=== PATIENT | female | born 1955 | race Caucasian/White ===

== ENCOUNTER 2019-06-02 18:20 | Observation (INO) | payer MEDICARE, BC ==
[2019-06-02] MEDS ORDERED: NORMAL SALINE 1000 ML 1,000 ML IV ONE ×2 (18:57→21:37)
--- NOTE | 2019-06-02 18:59 | ER Document Report ---
ED Medical Screen (RME) - General Chief Complaint: Dizziness Stated Complaint: LOW BLOOD PRESSURE Time Seen by Provider: 06/02/19 18:57 Primary Care Provider: KAYLIN BRUCE [Primary Care Provider] - Follow up as needed Mode of Arrival: Wheelchair Information source: Patient Notes: 63-year-old female presented to ED for weakness all days. She states she slipped on night and then all day. She states her pulse is been 120 and her blood pressure was 88/58 at the urgent care and 92/60 here. She states she is been dizzy all day. She states she has a history of high blood pressure and they took her off her medicines a month ago and is been low since then. States she has a history of cholesterol gastroparesis and migraines. She states she has had multiple EGDs and colonoscopies hiatal hernia Nica fundoplication. She states the Nexium caused the gastroparesis. She states she is also had a hysterectomy and appendectomy. Patient is alert and answering questions appropriately I have greeted and performed a rapid initial assessment of this patient. A comprehensive ED assessment and evaluation of the patient, analysis of test results and completion of medical decision making process will be conducted by an additional ED providers. Dictation of this chart was performed using voice recognition software; therefore, there may be some unintended grammatical errors. TRAVEL OUTSIDE OF THE [place] IN LAST 30 DAYS: No Past Medical History - Past Medical History Cardiac Medical History: Reports: Hx Hypercholesterolemia, Hx Hypertension Renal/ Medical History: Denies: Hx Peritoneal Dialysis Past Surgical History: Reports: Hx Abdominal Surgery - hernia repair Physical Exam - Vital signs Vitals: Temp Pulse Resp BP Pulse Ox 97.9 F 120 H 16 92/60 L 97 06/02/19 18:42 06/02/19 18:42 06/02/19 18:42 06/02/19 18:42 06/02/19 18:42 Course - Vital Signs Vital signs: Temp Pulse Resp BP Pulse Ox 97.9 F 120 H 16 92/60 L 97 06/02/19 18:42 06/02/19 18:42 06/02/19 18:42 06/02/19 18:42 06/02/19 18:42 Doctor's Discharge - Discharge Referrals: KAYLIN BRUCE [Primary Care Provider] - Follow up as needed
[2019-06-02 19:22] LABS: ABSOLUTE LYMPHOCYTES (AUTO) 0.5 10^3/uL (0.5-4.7); ABSOLUTE MONOCYTES (AUTO) 0.7 10^3/uL (0.1-1.4); ABSOLUTE NEUT (AUTO) 7.8 10^3/uL (1.7-8.2); BASOPHILS % (AUTO) 0.3 % (0-2); EOSINOPHILS % (AUTO) 0.1 % (0-6); HEMATOCRIT 37.3 % (36.0-47.0); HEMOGLOBIN 12.5 g/dL (12.0-15.5); LYMPHOCYTES % (AUTO) 5.2 % (13-45); MEAN CORPUSCULAR HEMOGLOBIN 31.2 pg (27.0-33.4); MEAN CORPUSCULAR HGB CONC 33.5 g/dL (32.0-36.0); MEAN CORPUSCULAR VOLUME 93 fl (80-97); MONOCYTES % (AUTO) 7.4 % (3-13); PLATELET COUNT 200 10^3/uL (150-450); RED BLOOD COUNT 4.01 10^6/uL (3.72-5.28); TOTAL CELLS COUNTED % (AUTO) 100 %
--- NOTE | 2019-06-02 19:24 | RADIOLOGY REPORT (SQ) ---
EXAM DESCRIPTION: CHEST 2 VIEWS COMPLETED DATE/TIME: 06/02/2019 7:12 pm REASON FOR STUDY: dizziness COMPARISON: None. EXAM PARAMETERS: NUMBER OF VIEWS: two views TECHNIQUE: Digital Frontal and Lateral radiographic views of the chest acquired. RADIATION DOSE: NA LIMITATIONS: none FINDINGS: LUNGS AND PLEURA: No opacities, masses or pneumothorax. No pleural effusion. MEDIASTINUM AND HILAR STRUCTURES: No masses or contour abnormalities. HEART AND VASCULAR STRUCTURES: Heart normal size. No evidence for failure. BONES: No acute findings. HARDWARE: None in the chest. OTHER: No other significant finding. IMPRESSION: NO ACUTE RADIOGRAPHIC FINDING IN THE CHEST. TECHNICAL DOCUMENTATION: JOB ID: [id number] [employer]- All Rights Reserved Reading location - IP/workstation name: [email or web address]
[2019-06-02 19:39] LABS: ALANINE AMINOTRANSFERASE 25 U/L (9-52); ALBUMIN 4.1 g/dL (3.5-5.0); ALKALINE PHOSPHATASE 83 U/L (38-126); ANION GAP 14 (5-19); ASPARTATE AMINO TRANSFERASE 31 U/L (14-36); BILIRUBIN,DIRECT 0.4 mg/dL (0.0-0.4); BILIRUBIN,TOTAL 0.4 mg/dL (0.2-1.3); BLOOD UREA NITROGEN 28 mg/dL (7-20); CALCIUM 8.6 mg/dL (8.4-10.2); CARBON DIOXIDE 21 mmol/L (22-30); CHLORIDE 97 mmol/L (98-107); GLUCOSE 87 mg/dL (75-110); POTASSIUM 4.3 mmol/L (3.6-5.0); TOTAL PROTEIN 7.1 g/dL (6.3-8.2)
--- NOTE | 2019-06-02 19:51 | ER Document Report ---
ED General - General Chief Complaint: Dizziness Stated Complaint: LOW BLOOD PRESSURE Time Seen by Provider: 06/02/19 18:57 Primary Care Provider: KAYLIN BRUCE [ACTIVE STAFF] - Follow up as needed Mode of Arrival: Wheelchair Information source: Patient Notes: HPI: Patient is a 63-year-old female that presents today with the onset of the last 24 to 48 hours of just feeling increased tiredness. She also says she has some feelings of intermittent vertigo. Patient denies any headache, blurry vision, neck pain, falls, chest pain, shortness of breath, abdominal pain, dysuria, or weakness or numbness. Patient states she has had "multiple episodes" of this in the past with MRI imaging that was unremarkable. is at bedside and agrees. Patient was recently discharged off her Floricef and potassium supplements per the primary care physician 1 month ago. She states however she had multiple similar symptoms before and after this was discontinued. ROS: See HPI All other review of systems reviewed and otherwise negative Reviewed vital signs and nursing note as charted by RN. PHYSICAL EXAM: CONSTITUTIONAL: Alert and oriented and responds appropriately to questions. Well-appearing; well-nourished HEAD: Normocephalic; atraumatic EYES: PERRL; no nystagmus noted ENT: Normal nose; no rhinorrhea; moist mucous membranes; pharynx without lesions noted NECK: Supple without meningismus; non-tender; no carotid bruits; no cervical lymphadenopathy, no masses CARD: Regular rate and rhythm; no murmurs; symmetric distal pulses RESP: Normal chest excursion without splinting or tachypnea; breath sounds clear and equal bilaterally; no wheezes, no rhonchi, no rales ABD/GI: Normal bowel sounds; non-distended; soft, non-tender; no abdominal bruits; no palpable organomegaly or masses BACK: The back appears normal and is non-tender to palpation EXT: Normal ROM in all joints; non-tender to palpation; no edema SKIN: No acute lesions noted NEURO: CN 2-12 intact; 5/5 bilateral upper and lower extremity strength with sensation intact to light touch; no nystagmus noted PSYCH: The patient's mood and manner are appropriate. Grooming and personal hygiene are appropriate. TRAVEL OUTSIDE OF THE [place] IN LAST 30 DAYS: No - Related Data Allergies/Adverse Reactions: ciprofloxacin [From Cipro] Allergy (Verified 06/02/19 20:53) quinine Allergy (Verified 06/02/19 20:53) Sulfa (Sulfonamide Antibiotics) Allergy (Verified 06/02/19 20:53) sumatriptan [From Imitrex] Allergy (Verified 06/02/19 20:53) Past Medical History - General Information source: Patient - Social History Smoking Status: Never Smoker Family History: Reviewed & Not Pertinent Patient has suicidal ideation: No Patient has homicidal ideation: No - Past Medical History Cardiac Medical History: Reports: Hx Hypercholesterolemia, Hx Hypertension Renal/ Medical History: Denies: Hx Peritoneal Dialysis Past Surgical History: Reports: Hx Abdominal Surgery - hernia repair Physical Exam - Vital signs Vitals: Temp Pulse Resp BP Pulse Ox 97.9 F 120 H 16 92/60 L 97 06/02/19 18:42 06/02/19 18:42 06/02/19 18:42 06/02/19 18:42 06/02/19 18:42 Course - Re-evaluation Re-evalutation: Given the history and physical examination in the 63-year-old female we will obtain basic labs, EKG, troponin, urine analysis, provide fluids, and reassess. Patient has no pain. She has no focal neurological deficits. She has no carotid bruits, or abdominal swelling with no tenderness to the abdomen or abdominal bruits present. Patient states she has multiple episodes of this in the past. Recent medication changes around 1 month ago. However, the patient had symptomatology similar to this before and after those events. She states that the primary care physician has not yet found a reason for these episodes. Patient denies any tinnitus or recent upper respiratory tract infections and de nies any fullness to the ears. 06/02/19 19:51 Initial labs as recorded. Heart rate is 87. Still no focal neurological deficits. No old labs to compare. A liter of fluid has been ordered. Slightly elevated BUN. EKG shows a heart of 103, sinus tachycardia, normal axis, no obvious ST elevation or depression. Poor R wave progression. Flattening T waves in aVL and 1 06/02/19 21:33 Labs and urine analysis as recorded. Urine culture has been sent. Rocephin has been provided. Patient's heart rate is still 102. Blood pressure is remained stable. Patient has been afebrile. Given the persistent slight tachycardia despite a liter of fluid, I have added on a lactic acid and will send the urine culture. I believe the patient requires at least observation. - Vital Signs Vital signs: Temp Pulse Resp BP Pulse Ox 97.9 F 120 H 21 H 115/62 95 06/02/19 18:42 06/02/19 18:42 06/02/19 20:31 06/02/19 20:31 06/02/19 20:31 - Laboratory Result Diagrams: 06/02/19 19:00 06/02/19 19:00 Laboratory results interpreted by me: 06/02/19 06/02/19 06/02/19 19:00 19:00 19:00 Seg Neutrophils % 87.0 H Lymphocytes % 5.2 L Sodium 131.6 L Chloride 97 L Carbon Dioxide 21 L BUN 28 H Creatinine 1.56 H Est GFR ( Amer) 40 L Est GFR (Non-Af Amer) 33 L TSH 0.06 L Urine Protein Urine Ketones Urine Urobilinogen Ur Leukocyte Esterase Urine Ascorbic Acid 06/02/19 20:07 Seg Neutrophils % Lymphocytes % Sodium Chloride Carbon Dioxide BUN Creatinine Est GFR ( Amer) Est GFR (Non-Af Amer) TSH Urine Protein 100 H Urine Ketones 20 H Urine Urobilinogen 2.0 H Ur Leukocyte Esterase SMALL H Urine Ascorbic Acid 40 H Discharge - Discharge Clinical Impression: Dizziness, Tachycardia UTI (urinary tract infection) Qualifiers: Urinary tract infection type: site unspecified Hematuria presence: without hematuria Qualified Code(s): N39.0 - Urinary tract infection, site not specified Condition: Fair Disposition: ADMITTED OBSERVATION Admitting Provider: Trino (Hospitalist) Referrals: KAYLIN BRUCE [ACTIVE STAFF] - Follow up as needed
[2019-06-02 19:52] LABS: CREATINE KINASE MB < 0.22 ng/mL (<4.55); TROPONIN I < 0.012 ng/mL
--- NOTE | 2019-06-02 20:06 | EKG REPORT ---
SEVERITY:- ABNORMAL ECG - SINUS TACHYCARDIA PROBABLE INFERIOR INFARCT, AGE INDETERMINATE CONSIDER ANTERIOR INFARCT : Confirmed by: Nicyk Hubbard MD 02-Jun-2019 20:05:19
[2019-06-02 20:39] LABS: APPEARANCE,URINE SLIGHTLY-CLOUDY; BILIRUBIN,URINE NEGATIVE (NEGATIVE); COLOR,URINE YELLOW; GLUCOSE, URINE NEGATIVE (NEGATIVE); KETONES,URINE 20 mg/dL (NEGATIVE); LEUKOCYTE ESTERASE,URINE SMALL (NEGATIVE); NITRITE,URINE NEGATIVE (NEGATIVE); PROTEIN,URINE 100 mg/dL (NEGATIVE); URINE SPECIFIC GRAVITY 1.023
[2019-06-02] MEDS ORDERED: CEFTRIAXONE 1 GM/D5W RTU 1 GM/50 ML RTUPB IV ONE (21:27)
[2019-06-02] MEDS ORDERED: ACETAMINOPHEN 325 MG TABLET PO ONE (22:02)
[2019-06-02 22:15] LABS: FREE T3 2.21 pg/mL (2.77-5.27); FREE T4 (FREE THYROXINE) 0.94 ng/dL (0.78-2.19)
[2019-06-02] MEDS ORDERED: MAGNESIUM HYDROXIDE SUSP 30 ML UDCUP PO PRN (22:22)
[2019-06-02] MEDS ORDERED: ONDANSETRON HCL INJ/PF 4 MG/2 ML SDV IV PRN (22:22)
[2019-06-02] MEDS ORDERED: MAG HYDROX/AL HYDROX/SIMETH SUSP 30 ML UDCUP PO PRN (22:22)
[2019-06-02] MEDS ORDERED: TEMAZEPAM 15 MG CAPSULE PO PRN (22:22)
[2019-06-02] MEDS ORDERED: ACETAMINOPHEN 325 MG TABLET PO PRN (22:29)
[2019-06-02] MEDS: RINGERS SOLUTION,LACTATED 1,000 ML IV PRN (23:48)
[2019-06-03 01:58] LABS: CREATINE KINASE MB < 0.22 ng/mL (<4.55); TROPONIN I < 0.012 ng/mL
[2019-06-03 02:28] VITALS: BP 129/64
--- NOTE | 2019-06-03 05:59 | PDOC H&P ---
History of Present Illness Admission Date/PCP: 06/02/19 21:56 MIGUEL GIMENEZ MD Patient complains of: Generalized weakness History of Present Illness: SHELLEY SNYDER is a 63 year old female who presented to the emergency room with a 2-day history of generalized weakness. She admits moderate generalized weakness accompanied by fatigue and intermittent episodes of vertigo/dizziness/lightheadedness for the last 2 days. She admits numerous prior similar episodes of uncertain etiology. She denies other accompanying or associated signs and symptoms. She has not identified any aggravating or ameliorating factors for her generalized weakness. She was seen at urgent care prior to coming to the emergency room where she was found to have a pulse of 120 and a blood pressure of 88/58. She further admits that her Florinef and oral potassium were discontinued by her primary care provider about 1 month ago. In the emergency room she was found to have pyuria, acute kidney injury and tach ycardia. She was subsequently admitted to observation status for further evaluation and treatment. Past Medical History Cardiac Medical History: Reports: Hyperlipidema, Hypertension Denies: Coronary Artery Disease Pulmonary Medical History: Denies: Asthma, Chronic Obstructive Pulmonary Disease (COPD) EENT Medical History: Denies: Cataracts, Ears - Hearing aids Neurological Medical History: Reports: Migraine Denies: Multiple Sclerosis, Seizures Endocrine Medical History: Reports: Diabetes Mellitus Type 2, Hyperthyroidism, Other - Was treated with Florinef but is uncertain of diagnosis Denies: Diabetes Mellitus Type 1, Hypothyroidism Renal/ Medical History: Reports: Other - Frequent urinary tract infections Denies: Chronic Kidney Disease, Nephrolithiasis Malignancy Medical History: Reports: None GI Medical History: Reports: Gastroesophageal Reflux Disease, Hiatal Hernia, Other - Gastroparesis Denies: Cirrhosis, Hepatitis Musculoskeltal Medical History: Denies: Arthritis, Gout Skin Medical History: Denies: Eczema, Psoriasis Psychiatric Medical History: Reports: Depression Denies: Alcohol Dependency, Substance Abuse, Tobacco Dependency Traumatic Medical History: Reports: None Hematology: Denies: Anemia, Bleeding Tendencies Infectious Medical History: Reports: None Past Surgical History Past Surgical History: Reports: Appendectomy, Cholecystectomy, Hysterectomy, Other - Aditya fundoplication for hiatal hernia Social History Information Source: Patient Lives with: Spouse/Significant other Smoking Status: Never Smoker Frequency of Alcohol Use: None Hx Recreational Drug Use: No Drugs: None Hx Prescription Drug Abuse: No - Advance Directive Resuscitation Status: Full Code Surrogate healthcare decision maker:: Comobrandi Snyder Family History Family History: CAD, DM. denies: Hypertension, Malignancy Parental Family History Reviewed: Yes Children Family History Reviewed: No Sibling(s) Family History Reviewed.: Yes Medication/Allergy Allergies/Adverse Reactions: ciprofloxacin [From Cipro] Allergy (Verified 06/02/19 20:53) quinine Allergy (Verified 06/02/19 20:53) Sulfa (Sulfonamide Antibiotics) Allergy (Verified 06/02/19 20:53) sumatriptan [From Imitrex] Allergy (Verified 06/02/19 20:53) Review of Systems Constitutional: PRESENT: as per HPI, fatigue, weakness. ABSENT: chills, fever(s) Eyes: ABSENT: visual disturbances, other - Eye pain Ears: ABSENT: hearing changes, other - Ear pain Nose, Mouth, and Throat: ABSENT: mouth pain, sore throat Cardiovascular: ABSENT: chest pain, palpitations Respiratory: ABSENT: cough, dyspnea Gastrointestinal: ABSENT: abdominal pain, constipation, diarrhea, nausea, vomiting Genitourinary: ABSENT: dysuria, hematuria Musculoskeletal: PRESENT: as per HPI, muscle weakness - Generalized. ABSENT: back pain, joint swelling Integumentary: ABSENT: pruritus, rash Neurological: PRESENT: as per HPI, dizziness, vertigo. ABSENT: confusion, convulsions, focal weakness, memory loss, syncope Psychiatric: ABSENT: anxiety, depression Endocrine: ABSENT: cold intolerance, heat intolerance Hematologic/Lymphatic: ABSENT: easy bleeding, easy bruising Physical Exam Vital Signs: Temp Pulse Resp BP Pulse Ox 97.9 F 120 H 21 H 115/62 95 06/02/19 18:42 06/02/19 18:42 06/02/19 20:31 06/02/19 20:31 06/02/19 20:31 Intake & Output 05/31/19 06/01/19 06/02/19 23:59 23:59 23:59 Intake Total 1000 Balance 1000 Weight 65.7 kg General appearance: PRESENT: no acute distress, cooperative Head exam: PRESENT: atraumatic, normocephalic Eye exam: PRESENT: conjunctiva pink. ABSENT: conjunctival injection, scleral icterus Ear exam: PRESENT: normal external ear exam. ABSENT: bleeding, drainage Mouth exam: PRESENT: dry mucosa, neck supple Neck exam: ABSENT: JVD, thyromegaly, tracheal deviation Respiratory exam: PRESENT: clear to auscultation gracy, symmetrical, unlabored Cardiovascular exam: PRESENT: RRR, tachycardia. ABSENT: clicks, gallop, rubs Pulses: PRESENT: normal radial pulses, normal dorsalis pedis pul Vascular exam: PRESENT: normal capillary refill. ABSENT: pallor GI/Abdominal exam: PRESENT: normal bowel sounds, soft Rectal exam: PRESENT: deferred Extremities exam: ABSENT: joint swelling, pedal edema, tenderness Musculoskeletal exam: PRESENT: full ROM, normal inspection Neurological exam: PRESENT: alert, oriented to person, oriented to place, o riented to time, oriented to situation, CN II-XII grossly intact. ABSENT: motor sensory deficit Psychiatric exam: PRESENT: anxious, normal mood Skin exam: PRESENT: dry, intact, warm. ABSENT: jaundice, rash, urticaria Results Laboratory Results: 06/02/19 19:00 06/02/19 19:00 06/02/19 06/02/19 06/02/19 19:00 19:00 19:00 WBC 9.0 RBC 4.01 Hgb 12.5 Hct 37.3 MCV 93 MCH 31.2 MCHC 33.5 RDW 14.0 Plt Count 200 Seg Neutrophils % 87.0 H Lymphocytes % 5.2 L Monocytes % 7.4 Eosinophils % 0.1 Basophils % 0.3 Absolute Neutrophils 7.8 Absolute Lymphocytes 0.5 Absolute Monocytes 0.7 Absolute Eosinophils 0.0 Absolute Basophils 0.0 Sodium 131.6 L Potassium 4.3 Chloride 97 L Carbon Dioxide 21 L Anion Gap 14 BUN 28 H Creatinine 1.56 H Est GFR ( Amer) 40 L Est GFR (Non-Af Amer) 33 L Glucose 87 Calcium 8.6 Total Bilirubin 0.4 AST 31 ALT 25 Alkaline Phosphatase 83 Total Protein 7.1 Albumin 4.1 TSH 0.06 L Urine Color Urine Appearance Urine pH Ur Specific [place] Urine Protein Urine Glucose (UA) Urine Ketones Urine Blood Urine Nitrite Ur Leukocyte Esterase Urine WBC (Auto) Urine RBC (Auto) 06/02/19 20:07 WBC RBC Hgb Hct MCV MCH MCHC RDW Plt Count Seg Neutrophils % Lymphocytes % Monocytes % Eosinophils % Basophils % Absolute Neutrophils Absolute Lymphocytes Absolute Monocytes Absolute Eosinophils Absolute Basophils Sodium Potassium Chloride Carbon Dioxide Anion Gap BUN Creatinine Est GFR ( Amer) Est GFR (Non-Af Amer) Glucose Calcium Total Bilirubin AST ALT Alkaline Phosphatase Total Protein Albumin TSH Urine Color YELLOW Urine Appearance SLIGHTLY-CLOUDY Urine pH 5.0 Ur Specific [place] 1.023 Urine Protein 100 H Urine Glucose (UA) NEGATIVE Urine Ketones 20 H Urine Blood NEGATIVE Urine Nitrite NEGATIVE Ur Leukocyte Esterase SMALL H Urine WBC (Auto) 18 Urine RBC (Auto) 2 06/02/19 19:00 CK-MB (CK-2) < 0.22 Troponin I < 0.012 Impressions: Chest X-Ray 06/02/19 18:57 IMPRESSION: NO ACUTE RADIOGRAPHIC FINDING IN THE CHEST. Assessment and Plan - Diagnosis (1) DORIAN (acute kidney injury) Is this a current diagnosis for this admission?: Yes Plan: Patient be treated with IV fluids. Her renal functions will be monitored with daily metabolic profiles and magnesium levels. (2) Hypotension due to hypovolemia Is this a current diagnosis for this admission?: Yes Plan: Patient be treated with IV fluid and her blood pressure be monitored closely throughout her hospital course. (3) Tachycardia Is this a current diagnosis for this admission?: Yes Plan: Patient be treated with IV fluid and her heart rate will be monitored closely throughout her hospital course. (4) Pyuria Is this a current diagnosis for this admission?: Yes Plan: Patient was treated with IV Rocephin. Urine cultures are pending at this time. She will be followed with a daily CBC. Patient will be converted to oral Keflex for ongoing therapy for an additional 3 to 5 days. - Time Time Spent with patient: 25-34 minutes Medications reviewed and adjusted accordingly: No - No med list available Anticipated discharge: Home - Inpatient Certification Based on my medical assessment, after consideration of the patient's comorbidities, presenting symptoms, or acuity I expect that the services needed warrant INPATIENT care.: No I certify that my determination is in accordance with my understanding of Medicare's requirements for reasonable and necessary INPATIENT services [42 CFR 412.3e].: No Medical Necessity: Need Close Monitoring Due to Risk of Patient Decompensation, Need For IV Fluids, Risk of Complication if Not Cared For in Hospital
[2019-06-03] MEDS ORDERED: HEPARIN SOD (PORCINE) 5,000 UNIT/ML 1 ML VIAL SUBCUT SCH (06:00)
--- NOTE | 2019-06-03 06:02 | ADVANCED CARE ---
- Diagnosis (1) DORIAN (acute kidney injury) Diagnosis Current: Yes (2) Hypotension due to hypovolemia Diagnosis Current: Yes (3) Tachycardia Diagnosis Current: Yes (4) Pyuria Diagnosis Current: Yes Attendance: Patient and myself Resuscitation Status: Full Code Discussion: After brief discussion the patient indicates that she wishes to remain full code for resuscitation status in the event of a cardiac or respiratory arrest during this hospitalization. Additionally she names her Loyd Snyder as her designated surrogate medical decision-maker. Care Planning Goals: 1. Patient will be full CODE STATUS for this hospitalization. 2. Loyd Snyder is her designated surrogate medical decision maker. Document(s) Completed: Following information will be entered into the permanent medical record as well as the current record and current orders via EMR entry: 1. Patient will be full CODE STATUS for this hospitalization. 2. Loyd Snyder is her designated surrogate medical decision maker. Time Spent: 6 minutes
[2019-06-03 06:51] LABS: HEMATOCRIT 31.4 % (36.0-47.0); HEMOGLOBIN 10.6 g/dL (12.0-15.5); MEAN CORPUSCULAR HEMOGLOBIN 31.5 pg (27.0-33.4); MEAN CORPUSCULAR HGB CONC 33.8 g/dL (32.0-36.0); MEAN CORPUSCULAR VOLUME 93 fl (80-97); PLATELET COUNT 170 10^3/uL (150-450); RED BLOOD COUNT 3.37 10^6/uL (3.72-5.28); RED CELL DISTRIBUTION WIDTH 13.9 % (11.5-14.0); WHITE BLOOD COUNT 6.1 10^3/uL (4.0-10.5)
[2019-06-03 07:23] LABS: ANION GAP 8 (5-19); BLOOD UREA NITROGEN 24 mg/dL (7-20); CALCIUM 7.7 mg/dL (8.4-10.2); CARBON DIOXIDE 21 mmol/L (22-30); CHLORIDE 106 mmol/L (98-107); CHOLESTEROL 102.33 mg/dL (0-200); CREATINE KINASE 58 U/L (30-135); GLUCOSE 93 mg/dL (75-110); TRIGLYCERIDES 100 mg/dL (<150)
[2019-06-03 07:24] LABS: POTASSIUM 3.6 mmol/L (3.6-5.0)
[2019-06-03 07:31] LABS: CREATINE KINASE MB < 0.22 ng/mL (<4.55); TROPONIN I < 0.012 ng/mL
[2019-06-03 07:35] LABS: DIRECT LDL 35 mg/dL (<100)
[2019-06-03] MEDS ORDERED: SUCRALFATE 1 GM TABLET PO SCH (08:00)
[2019-06-03] MEDS ORDERED: METOCLOPRAMIDE HCL 10 MG TABLET PO SCH (08:00)
[2019-06-03] MEDS ORDERED: FAMOTIDINE 20 MG TABLET PO SCH (08:00)
[2019-06-03] MEDS: RINGERS SOLUTION,LACTATED 1,000 ML IV PRN (08:09)
[2019-06-03] MEDS ORDERED: CEFTRIAXONE SODIUM 1,000 MG in DEXTROSE 5%-WATER 50 ML IV SCH (10:00)
[2019-06-03] MEDS ORDERED: CEPHALEXIN 500 MG CAPSULE PO SCH (10:00)
[2019-06-03] MEDS ORDERED: DOCUSATE SODIUM 100 MG CAPSULE PO SCH (10:00)
[2019-06-03] MEDS ORDERED: CEFTRIAXONE 1 GM/D5W RTU 1 GM/50 ML RTUPB IV SCH (10:00)
--- NOTE | 2019-06-03 10:11 | PDOC DISCHARGE SUMMARY ---
General - Admit/Disc Date/PCP Admission Date/Primary Care Provider: 06/02/19 21:56 MIGUEL GIMENEZ MD Discharge Date: 06/03/19 - Additional Information Resuscitation Status: Full Code History of Present Illness History of Present Illness: SHELLEY ORTIZ is a 63 year old female who presented to the emergency room with a 2-day history of generalized weakness. She admits moderate generalized weakness accompanied by fatigue and intermittent episodes of vertigo/dizziness/lightheadedness for the last 2 days. She admits numerous prior similar episodes of uncertain etiology. She denies other accompanying or associated signs and symptoms. She has not identified any aggravating or am eliorating factors for her generalized weakness. She was seen at urgent care prior to coming to the emergency room where she was found to have a pulse of 120 and a blood pressure of 88/58. She further admits that her Florinef and oral potassium were discontinued by her primary care provider about 1 month ago. In the emergency room she was found to have pyuria, acute kidney injury and tachycardia. She was subsequently admitted to observation status for further evaluation and treatment. Hospital Course Hospital Course: This is 63 years old female patient who presented with chief complaint of generalized body weakness. Her blood work shows acute kidney injury with creatinine of 1.56 and her urinalysis shows mild pyuria. Patient has been managed with antibiotics and IV hydration. This morning her creatinine trended down to 1.17. Patient seen and examined at bedside. She reports that she feels much better and she wants to go home today. I will continue all her home medications and I will send her with Levaquin 500 mg p.o. daily for 5 days. Physical Exam Vital Signs: Temp Pulse Resp BP Pulse Ox 98.5 F 91 16 129/64 H 96 06/03/19 00:45 06/03/19 00:45 06/03/19 00:45 06/03/19 00:45 06/03/19 00:45 Intake & Output 06/02/19 06/03/19 06/04/19 06:59 06:59 06:59 Intake Total 3240 Balance 3240 Weight 65.7 kg General appearance: PRESENT: no acute distress Head exam: PRESENT: atraumatic Eye exam: PRESENT: conjunctiva pink Neck exam: ABSENT: carotid bruit, JVD, lymphadenopathy, thyromegaly Respiratory exam: PRESENT: clear to auscultation gracy. ABSENT: rales, rhonchi, wheezes Cardiovascular exam: PRESENT: RRR. ABSENT: diastolic murmur, rubs, systolic murmur GI/Abdominal exam: PRESENT: normal bowel sounds, soft. ABSENT: distended, guarding, mass, organolmegaly, rebound, tenderness Neurological exam: PRESENT: alert, awake, oriented to person, oriented to place, oriented to time, oriented to situation Results Laboratory Results: 06/03/19 06:40 06/03/19 06:40 06/02/19 06/02/19 06/02/19 19:00 19:00 19:00 WBC 9.0 RBC 4.01 Hgb 12.5 Hct 37.3 MCV 93 MCH 31.2 MCHC 33.5 RDW 14.0 Plt Count 200 Seg Neutrophils % 87.0 H Lymphocytes % 5.2 L Monocytes % 7.4 Eosinophils % 0.1 Basophils % 0.3 Absolute Neutrophils 7.8 Absolute Lymphocytes 0.5 Absolute Monocytes 0.7 Absolute Eosinophils 0.0 Absolute Basophils 0.0 Sodium 131.6 L Potassium 4.3 Chloride 97 L Carbon Dioxide 21 L Anion Gap 14 BUN 28 H Creatinine 1.56 H Est GFR ( Amer) 40 L Est GFR (Non-Af Amer) 33 L Glucose 87 Lactic Acid Calcium 8.6 Magnesium Total Bilirubin 0.4 AST 31 ALT 25 Alkaline Phosphatase 83 Total Protein 7.1 Albumin 4.1 Triglycerides Cholesterol LDL Cholesterol Direct VLDL Cholesterol HDL Cholesterol TSH 0.06 L Free T4 Free T3 pg/mL Urine Color Urine Appearance Urine pH Ur Specific Matthews Urine Protein Urine Glucose (UA) Urine Ketones Urine Blood Urine Nitrite Ur Leukocyte Esterase Urine WBC (Auto) Urine RBC (Auto) 06/02/19 06/02/19 06/02/19 19:00 20:07 21:52 WBC RBC Hgb Hct MCV MCH MCHC RDW Plt Count Seg Neutrophils % Lymphocytes % Monocytes % Eosinophils % Basophils % Absolute Neutrophils Absolute Lymphocytes Absolute Monocytes Absolute Eosinophils Absolute Basophils Sodium Potassium Chloride Carbon Dioxide Anion Gap BUN Creatinine Est GFR ( Amer) Est GFR (Non-Af Amer) Glucose Lactic Acid 0.7 Calcium Magnesium Total Bilirubin AST ALT Alkaline Phosphatase Total Protein Albumin Triglycerides Cholesterol LDL Cholesterol Direct VLDL Cholesterol HDL Cholesterol TSH Free T4 0.94 Free T3 pg/mL 2.21 L Urine Color YELLOW Urine Appearance SLIGHTLY-CLOUDY Urine pH 5.0 Ur Specific Matthews 1.023 Urine Protein 100 H Urine Glucose (UA) NEGATIVE Urine Ketones 20 H Urine Blood NEGATIVE Urine Nitrite NEGATIVE Ur Leukocyte Esterase SMALL H Urine WBC (Auto) 18 Urine RBC (Auto) 2 06/03/19 06/03/19 06:40 06:40 WBC 6.1 RBC 3.37 L Hgb 10.6 L Hct 31.4 L MCV 93 MCH 31.5 MCHC 33.8 RDW 13.9 Plt Count 170 Seg Neutrophils % Lymphocytes % Monocytes % Eosinophils % Basophils % Absolute Neutrophils Absolute Lymphocytes Absolute Monocytes Absolute Eosinophils Absolute Basophils Sodium 135.2 L Potassium 3.6 Chloride 106 Carbon Dioxide 21 L Anion Gap 8 BUN 24 H Creatinine 1.17 Est GFR ( Amer) 56 L Est GFR (Non-Af Amer) 46 L Glucose 93 Lactic Acid Calcium 7.7 L Magnesium 2.0 Total Bilirubin AST ALT Alkaline Phosphatase Total Protein Albumin Triglycerides 100 Cholesterol 102.33 LDL Cholesterol Direct 35 VLDL Cholesterol 20.0 HDL Cholesterol 51 TSH Free T4 Free T3 pg/mL Urine Color Urine Appearance Urine pH Ur Specific Matthews Urine Protein Urine Glucose (UA) Urine Ketones Urine Blood Urine Nitrite Ur Leukocyte Esterase Urine WBC (Auto) Urine RBC (Auto) 06/02/19 06/03/19 06/03/19 19:00 00:00 00:00 Creatine Kinase Cancelled CK-MB (CK-2) < 0.22 Cancelled Troponin I < 0.012 Cancelled 06/03/19 06/03/19 06/03/19 01:25 01:25 06:40 Creatine Kinase 55 58 CK-MB (CK-2) < 0.22 Troponin I < 0.012 06/03/19 06:40 Creatine Kinase CK-MB (CK-2) < 0.22 Troponin I < 0.012 Impressions: Chest X-Ray 06/02/19 18:57 IMPRESSION: NO ACUTE RADIOGRAPHIC FINDING IN THE CHEST. Qualifiers - * PATIENT BEING DISCHARGED WITH ANY OF THE FOLLOWING DIAGNOSIS: No Acute Heart Failure - Is this a Heart Failure Patient?: No LVEF < 40%?: No- if no continue to question #3 3. Anticoagulant therapy for permanect/persistent/paraoxysmal Afib or Aflutter: N/A
[2019-06-03] MEDS ORDERED: KETOROLAC TROMETHAMINE INJ/PF 30 MG/1 ML SDV IV ONE (10:45)
== END 2019-06-03 11:45 | disposition home or self-care (01) ==
LOC: ER 18:20 → EH 21:56 → 4N 06-03 02:16
PROVIDERS: ADMIT Emergency Medicine; ATTEND Emergency Medicine
DX: N17.9 Acute kidney failure, unspecified (principal); E86.1 Hypovolemia; I95.9 Hypotension, unspecified; R00.0 Tachycardia, unspecified; N39.0 Urinary tract infection, site not specified; E11.9 Type 2 diabetes mellitus without complications; K21.9 Gastro-esophageal reflux disease without esophagitis; K31.84 Gastroparesis; Z87.440 Personal history of urinary (tract) infections; Z90.49 Acquired absence of other specified parts of digestive tract; Z90.710 Acquired absence of both cervix and uterus; Z82.49 Family history of ischemic heart disease and other diseases of the circulatory system; Z86.79 Personal history of other diseases of the circulatory system; Z98.890 Other specified postprocedural states
CPT/HCPCS: 93005; 99285; 96361; 96365; 36415 ×2; 87086; 84439; 82553 ×2; 82550; 83735; 84443; 85025; 85027; 87088; 80048; 80053; 81001; 84484 ×2; 87186; 84481; 83036; 83605; 80061; 71046; 93010; G0378 ×3; A9270 ×5; J1644; J1885; J0696 ×2; J7060; J7030; J7120 ×2